=== PATIENT | female | born 1965 | race Caucasian/White ===

== ENCOUNTER 2018-10-30 17:41 | Emergency (ER) | payer MEDICAID ==
[~2018-10-30] VITALS: Ht 149.9 cm; Wt 54.0 kg
[2018-10-30 17:45] VITALS: BP 126/69
== END 2018-10-30 18:59 | disposition home or self-care (01) ==
LOC: ED 18:53
DX: M51.34 Other intervertebral disc degeneration, thoracic region (principal); M51.36 Other intervertebral disc degeneration, lumbar region
CPT/HCPCS: 72072; 72110; 99283

== ENCOUNTER 2018-11-27 07:30 | Emergency (ER) | payer MEDICAID ==
[~2018-11-27] VITALS: Ht 149.9 cm; Wt 53.0 kg
[2018-11-27 07:37] VITALS: BP 135/68
[2018-11-27] MEDS ORDERED: METHOCARBAMOL 750 MG TABLET ONE (08:22)
[2018-11-27] MEDS ORDERED: KETOROLAC 30 MG/1 ML ONE (08:22)
[2018-11-27] MEDS ORDERED: METHOCARBAMOL 750 MG TABLET PO ONE (08:30)
[2018-11-27] MEDS ORDERED: KETOROLAC 30 MG/1 ML IM ONE (08:30)
--- NOTE | 2018-11-27 08:30 | NUR ---
MEDICATED ORDERED FOR 02/16 BACKPAIN
--- NOTE | 2018-11-27 08:42 | NUR ---
PT GIVEN PEANUTBUTTER, RADHA KHALIL AND OJohnnie, PA AWARE OF FSBS
== END 2018-11-27 09:18 ==
LOC: ED 09:13
DX: M54.6 Pain in thoracic spine (principal); M54.5 Low back pain; G89.29 Other chronic pain
CPT/HCPCS: 82962; 96372; 99283; J1885

== ENCOUNTER 2018-12-20 19:04 | Emergency (ER) | payer MEDICAID ==
[~2018-12-20] VITALS: Ht 149.9 cm; Wt 48.0 kg
--- NOTE | 2018-12-20 19:26 | NUR ---
PATIENT PRESENTS TO ED TODAY FOR COUGH X 1 WEEK. PRESCRIBED ABX AND INHALER BY PCP (DR RICHARDSON), TAKING PAST 2 DAYS. NADN. SKIN WARM, PINK, DRY. MD AT BEDSIDE, AWAITING MD ORDERS, CALL LIGHT WITHIN REACH.
[2018-12-20] MEDS ORDERED: INSU100V8 SQ (19:36)
[2018-12-20] MEDS ORDERED: GABA-827 PO (19:36)
[2018-12-20] MEDS ORDERED: DULA0.75 INJ (19:36)
[2018-12-20] MEDS ORDERED: BACL20TA PO (19:36)
[2018-12-20] MEDS ORDERED: TRAZ50TA66 PO (19:37)
[2018-12-20] MEDS ORDERED: TRAM100T3 PO (19:37)
--- NOTE | 2018-12-20 19:40 | NUR ---
PATIENT TO XRAY VIA NADN. TRA
[2018-12-20 19:53] LABS: BASOPHILS # (AUTO) 0.01 x10^3/uL (0-0.1); BASOPHILS % (AUTO) 0 % (0-1); EOSINOPHILS # (AUTO) 0.09 x10^3/uL (0-0.4); EOSINOPHILS % (AUTO) 2 % (1-7); LYMPHOCYTES # (AUTO) 1.17 x10^3/uL (1-3.4); LYMPHOCYTES % (AUTO) 22 % (22-44); MD NO; MEAN CORPUSCULAR HEMOGLOBIN 32.1 pg (27.0-34.8); MEAN CORPUSCULAR VOLUME 97.5 fL (80-100); MEAN PLATELET VOLUME 9.6 fL (7.4-10.4); MONOCYTES # (AUTO) 0.56 x10^3/uL (0.2-0.8); MONOCYTES % (AUTO) 11 % (2-9); NEUTROPHILS # (AUTO) 3.44 x10^3/uL (1.8-6.8); NEUTROPHILS % (AUTO) 65 % (42-75); PLATELET COUNT 164 x10^3/uL (130-400); RED BLOOD COUNT 3.53 x10^6/uL (3.82-5.3); RED CELL DISTRIBUTION WIDTH 13.5 % (9.6-15.2)
[2018-12-20 20:01] LABS: ANION GAP 6 mmol/L (5-15); CHLORIDE 107 mmol/L (98-107); CREATININE 0.94 mg/dL (0.55-1.02)
--- NOTE | 2018-12-20 20:09 | NUR ---
RESULTS BACK, CHART UP FOR RECHECK.
[2018-12-20 20:46] VITALS: BP 141/80
--- NOTE | 2018-12-20 20:47 | NUR ---
VS UPDATED IN CHART, PATIENT PROVIDED WARM BLANKET, AWAITING FURTHER ORDERS. NADN.
--- NOTE | 2018-12-20 21:35 | NUR ---
call jean for a ride [phone]
== END 2018-12-20 21:45 | disposition home or self-care (01) ==
LOC: ED 19:25
DX: B34.9 Viral infection, unspecified (principal); E11.9 Type 2 diabetes mellitus without complications; Z87.891 Personal history of nicotine dependence
CPT/HCPCS: 36415; 71046; 80048; 82040; 85025; 99284

== ENCOUNTER 2019-02-21 11:59 | Emergency (ER) | payer MEDICAID ==
[~2019-02-21] VITALS: Ht 149.9 cm; Wt 49.7 kg
[2019-02-21 14:17] VITALS: BP 168/84
== END 2019-02-21 16:22 | disposition home or self-care (01) ==
LOC: ED 15:45
DX: E10.40 Type 1 diabetes mellitus with diabetic neuropathy, unspecified (principal); E10.65 Type 1 diabetes mellitus with hyperglycemia; N30.00 Acute cystitis without hematuria; Z87.891 Personal history of nicotine dependence
CPT/HCPCS: 36415; 70450; 71045; 80053; 81001; 82010; 82800; 83036; 83735; 85025; 87086; 87147; 93005; 99284; J7030